=== PATIENT | male | born 1980 | race Caucasian/White ===

== ENCOUNTER 2016-08-17 20:44 | Emergency (ER) | payer OTHER ==
[2016-08-17] MEDS ORDERED: NORCO 5/325MG TABLET (BULK) As Ordered ONE (22:02)
--- NOTE | 2016-08-17 22:17 | EDDOCDS ---
Physician Documentation [facility] Name: Mathew Fermin Age: 35 yrs Sex: Male : 1980 Arrival Date: 08/17/2016 Time: 20:44 Bed TR7 Private MD: ALEHSAN EDEN Disposition: 08/17/16 22:02 Discharged to Home/Self Care. Impression: Pain in left shoulder. - Condition is Stable. - Discharge Instructions: Shoulder Dislocation, Shoulder Pain. - Prescriptions for Burtrum 5- 325 mg Oral Tablet - take 1 tablet by ORAL route every 6 hours As needed MDD: 4 tabs; 20 tablet. - Medication Reconciliation, Local Pharmacy Hours form. - Follow up: Fredi Jackson; When: Call to arrange an appointment; Reason: Recheck today's complaints, Continuance of care. - Problem is an acute exacerbation. - Symptoms have improved. Historical: - Allergies: PENICILLINS (Hives); - Home Meds: 1. none - PMHx: left shoulder dislocation; - PSHx: none; - Social history: Smoking status: Patient uses tobacco products, heavy tobacco smoker. Patient uses alcohol occasionally. Patient/guardian denies using street drugs, No barriers to communication noted, The patient speaks fluent Latvian, Speaks appropriately for age. - Family history: Not pertinent. - : The pt / caregiver states he / she is not on anticoagulants. Home medication list is obtained from the patient. - Exposure Risk Screening:: None identified. Vital Signs: 08/17 20:46 BP 158 / 101; Pulse 83; Resp 18 S; Temp 98.0; Pulse Ox 99% on R/A; Weight 90.26 kg / dd6 198.99 lbs (R); Height 6 ft. 0 in. (182.88 cm) (R); 22:07 BP 134 / 110; Pulse 61; Resp 18; Pulse Ox 96% ; Pain 3/10; ms18 22:12 ms18 20:46 Body Mass Index 26.99 (90.26 kg, 182.88 cm) dd6 22:12 Provider informed of pt's BP. Pt encouraged to follow up with PCP to monitor pt's BP ms18 MDM: 20:58 Shoulder, Complete Ordered. EDMS 21:57 HYDROcodone-acetaminophen 4 pack- 5 mg-325 mg 1 packets PO Per package directions; mo1 Dispense with patient. 1 po q4h prn for pain ordered. Administered Medications: 22:12 Drug: HYDROcodone-acetaminophen 4 pack- 1 packets [hydrocodone 5 mg-acetaminophen 325 jmb mg tablet (1 tabs)] {Co-Signature: ms18 (Swathi Joaquin RN).} Route: PO; 22:14 Follow up: Response: Med's dispensed home ms18 Signatures: Dispatcher [employer] Carol Garcia RN RN ttb Mathew Bonilla PA PA mo1 Swathi Joaquin RN RN ms18 Khadar Haile RN jmb Swathi Joaquin RN ms18 MTDD
--- NOTE | 2016-08-17 22:17 | EDDOCDS ---
Nurse's Notes [facility] Name: Mathew Fermin Age: 35 yrs Sex: Male : 1980 Arrival Date: 08/17/2016 Time: 20:44 Bed TR7 Private MD: MDEHSAN EDEN Diagnosis: Pain in left shoulder Presentation: 08/17 20:47 Presenting complaint: Patient states: left shoulder "popped his shoulder out" while ttb playing with balloon. Pt was seen here this past summer and is awaiting surgical repair in December. 12/11 pain. Adult Sepsis Screening: The patient does not have new or worsening altered mentation. Patient's respiratory rate is less than 22. Systolic blood pressure is greater than 100. Patient has a qSOFA score of 0- Negative Sepsis Screen. Suicide/Homicide risk assessment- the patient denies having any suicidal and/or homicidal ideations and does not present with any other emotional, behavioral or mental health complaints. Transition of care: patient was not received from another setting of care. 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 ttb Triage Assessment: 20:50 General: Appears in no apparent distress, well nourished, well groomed, Behavior is ttb appropriate for age, cooperative, pleasant. Pain: Location: left shoulder Pain currently is 5 out of 10 on a pain scale. HIV screening NA for this visit Offered previously. Neurological: Level of Consciousness is awake, alert, Reports numbness/tingling in left arm/hand. Cardiovascular: Chest pain is denied. Respiratory: No deficits noted. Airway is patent Denies cough, shortness of breath. Derm: Skin is normal. Musculoskeletal: Range of motion limited in left arm -- shoulder Reports pain in left shoulder. Injury Description: hitting a balloon. Historical: - Allergies: PENICILLINS (Hives); - Home Meds: 1. none - PMHx: left shoulder dislocation; - PSHx: none; - Social history: Smoking status: Patient uses tobacco products, heavy tobacco smoker. Patient uses alcohol occasionally. Patient/guardian denies using street drugs, No barriers to communication noted, The patient speaks fluent Azeri, Speaks appropriately for age. - Family history: Not pertinent. - : The pt / caregiver states he / she is not on anticoagulants. Home medication list is obtained from the patient. - Exposure Risk Screening:: None identified. Screenin:12 Screening information is obtained from the patient. Fall risk: No risks identified. ms18 Assistance ADL's: requires no assistance with activities of daily living. Abuse/DV Screen: The patient / caregiver reports he/she is: not in a situation that causes fear, pain or injury. Nutritional screening: No deficits noted. Advance Directives: There is no living will. home support is adequate. Assessment: 22:12 General: Appears in no apparent distress, comfortable, Behavior is appropriate for age, ms18 cooperative. Pain: Location: anterior aspect of left shoulder and posterior aspect of left shoulder Pain currently is 3 out of 10 on a pain scale. Neurological: Level of Consciousness is awake, alert, obeys commands, Oriented to person, place, time. Respiratory: No deficits noted. Derm: Skin is pink, warm & dry. Musculoskeletal: Circulation, motion, and sensation intact Range of motion intact in all extremities. No deformity noted Reports pain in anterior aspect of left shoulder and posterior aspect of left shoulder. Vital Signs: 20:46 BP 158 / 101; Pulse 83; Resp 18 S; Temp 98.0; Pulse Ox 99% on R/A; Weight 90.26 kg (R); dd6 Height 6 ft. 0 in. (182.88 cm) (R); 22:07 BP 134 / 110; Pulse 61; Resp 18; Pulse Ox 96% ; Pain 3/10; ms18 22:12 ms18 20:46 Body Mass Index 26.99 (90.26 kg, 182.88 cm) dd6 22:12 Provider informed of pt's BP. Pt encouraged to follow up with PCP to monitor pt's BP ms18 Vitals: 20:46 Log In Time: August 17, 2016 at 20:44. dd6 ED Course: 20:45 Patient visited by Nico Sevilla PCA. dd6 20:45 [facility], EHSAN MALDONADO is Private Physician. dd6 20:45 Patient moved to Waiting dd6 20:46 Patient moved to Pre RCE dd6 20:49 Triage Initiated ttb 20:52 Patient visited by Carol Howard RN. ttb 21:29 Patient moved to Triage 3 jmb 21:41 Mathew Bonilla PA is PHCP. mo1 21:41 Tim Hoang DO is Attending Physician. mo1 21:45 Patient moved to U2 dd6 21:46 Patient moved to Triage 3 dd6 21:55 Patient visited by Mathew Bonilla PA. mo1 22:02 Fredi Jackson is Referral Physician. mo1 22:11 Patient moved to [address] 22:12 Patient visited by Swathi Joaquin RN. ms18 22:12 The patient / caregiver is instructed regarding the plan of care and ED course. ms18 Accompanied by Family Member, Patient has correct armband on for positive identification. Property sent home with patient. :Personal belongings accompany Pt. 22:12 No IV's were initiated during this patient's visit. No procedures done that require ms18 assistance. Administered Medications: 22:12 Drug: HYDROcodone-acetaminophen 4 pack- 1 packets [hydrocodone 5 mg-acetaminophen 325 jmb mg tablet (1 tabs)] {Co-Signature: ms18 (Swathi Joaquin RN).} Route: PO; 22:14 Follow up: Response: Med's dispensed home ms18 Order Results: There are currently no results for this order. Outcome: 22:02 Discharge ordered by Provider. mo1 22:12 Discharge Assessment: Patient awake, alert and oriented x 3. No cognitive and/or ms18 functional deficits noted. Patient verbalized understanding of disposition instructions. patient administered narcotics - no. The following High Risk Discharge criteria are identified: None. Discharged to home ambulatory. Condition: good Condition: stable Condition: improved. Discharge instructions given to patient, Instructed on discharge instructions, follow up and referral plans. medication usage, no driving heavy equipment, Demonstrated understanding of instructions, medications, Pt understood to follow up with his PCP about his BP. Pt also stated that he has a sling at home that he will put on when he gets home. Prescriptions given X 1. No special radiology studies were completed. 22:16 Patient left the ED. ms18 Signatures: Nico Sevilla, GROUT PUMP OPERATOR GROUT PUMP OPERATOR dd6 Carol Howard, RN RN ttb Mathew Bonilla PA PA mo1 Khadar HaileRN RN jmb Swathi Joaquin RN RN ms18 Swathi Joaquin RN ms18 Corrections: (The following items were deleted from the chart) 20:49 20:47 Status: Patient is not a coordinator of genetic services or dependent. ttb ttb MTDD
--- NOTE | 2016-08-18 08:14 | REP ---
Clinical: Trauma . Technique: Internal rotation, external rotation, and Y view left shoulder . Findings: No acute fracture or dislocation. The acromioclavicular and glenohumeral joints are intact. No periarticular calcifications or degenerative changes are appreciated. Sub acromial space is normal. Surrounding soft tissues are unremarkable. Impression: Normal left shoulder radiographs. No acute fracture or dislocation. Signed by Vega Bone MD 08/18/2016 08:05 A
--- NOTE | 2016-08-19 23:17 | EDDOCDS ---
Nurse's Notes [facility] Name: Mathew Fermin Age: 35 yrs Sex: Male : 1980 Arrival Date: 08/17/2016 Time: 20:44 Bed TR7 Private MD: COEHSAN EDEN Diagnosis: Pain in left shoulder Presentation: 08/17 20:47 Presenting complaint: Patient states: left shoulder "popped his shoulder out" while ttb playing with balloon. Pt was seen here this past summer and is awaiting surgical repair in December. 12/11 pain. Adult Sepsis Screening: The patient does not have new or worsening altered mentation. Patient's respiratory rate is less than 22. Systolic blood pressure is greater than 100. Patient has a qSOFA score of 0- Negative Sepsis Screen. Suicide/Homicide risk assessment- the patient denies having any suicidal and/or homicidal ideations and does not present with any other emotional, behavioral or mental health complaints. Transition of care: patient was not received from another setting of care. 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 ttb Triage Assessment: 20:50 General: Appears in no apparent distress, well nourished, well groomed, Behavior is ttb appropriate for age, cooperative, pleasant. Pain: Location: left shoulder Pain currently is 5 out of 10 on a pain scale. HIV screening NA for this visit Offered previously. Neurological: Level of Consciousness is awake, alert, Reports numbness/tingling in left arm/hand. Cardiovascular: Chest pain is denied. Respiratory: No deficits noted. Airway is patent Denies cough, shortness of breath. Derm: Skin is normal. Musculoskeletal: Range of motion limited in left arm -- shoulder Reports pain in left shoulder. Injury Description: hitting a balloon. Historical: - Allergies: PENICILLINS (Hives); - Home Meds: 1. none - PMHx: left shoulder dislocation; - PSHx: none; - Social history: Smoking status: Patient uses tobacco products, heavy tobacco smoker. Patient uses alcohol occasionally. Patient/guardian denies using street drugs, No barriers to communication noted, The patient speaks fluent Malay, Speaks appropriately for age. - Family history: Not pertinent. - : The pt / caregiver states he / she is not on anticoagulants. Home medication list is obtained from the patient. - Exposure Risk Screening:: None identified. Screenin:12 Screening information is obtained from the patient. Fall risk: No risks identified. ms18 Assistance ADL's: requires no assistance with activities of daily living. Abuse/DV Screen: The patient / caregiver reports he/she is: not in a situation that causes fear, pain or injury. Nutritional screening: No deficits noted. Advance Directives: There is no living will. home support is adequate. Assessment: 22:12 General: Appears in no apparent distress, comfortable, Behavior is appropriate for age, ms18 cooperative. Pain: Location: anterior aspect of left shoulder and posterior aspect of left shoulder Pain currently is 3 out of 10 on a pain scale. Neurological: Level of Consciousness is awake, alert, obeys commands, Oriented to person, place, time. Respiratory: No deficits noted. Derm: Skin is pink, warm & dry. Musculoskeletal: Circulation, motion, and sensation intact Range of motion intact in all extremities. No deformity noted Reports pain in anterior aspect of left shoulder and posterior aspect of left shoulder. Vital Signs: 20:46 BP 158 / 101; Pulse 83; Resp 18 S; Temp 98.0; Pulse Ox 99% on R/A; Weight 90.26 kg (R); dd6 Height 6 ft. 0 in. (182.88 cm) (R); 22:07 BP 134 / 110; Pulse 61; Resp 18; Pulse Ox 96% ; Pain 3/10; ms18 22:12 ms18 20:46 Body Mass Index 26.99 (90.26 kg, 182.88 cm) dd6 22:12 Provider informed of pt's BP. Pt encouraged to follow up with PCP to monitor pt's BP ms18 Vitals: 20:46 Log In Time: August 17, 2016 at 20:44. dd6 ED Course: 20:45 Patient visited by Nico Sevilla PCA. dd6 20:45 [facility], EHSAN MALDONADO is Private Physician. dd6 20:45 Patient moved to Waiting dd6 20:46 Patient moved to Pre RCE dd6 20:49 Triage Initiated ttb 20:52 Patient visited by Carol Howard RN. ttb 21:29 Patient moved to Triage 3 jmb 21:41 Mathew Bonilla PA is PHCP. mo1 21:41 Tim Hoang DO is Attending Physician. mo1 21:45 Patient moved to U2 dd6 21:46 Patient moved to Triage 3 dd6 21:55 Patient visited by Mathew Bonilla PA. mo1 22:02 Fredi Jackson is Referral Physician. mo1 22:11 Patient moved to TR7 jmb 22:12 Patient visited by Swathi Joaquin,PHIL. ms18 22:12 The patient / caregiver is instructed regarding the plan of care and ED course. ms18 Accompanied by Family Member, Patient has correct armband on for positive identification. Property sent home with patient. :Personal belongings accompany Pt. 22:12 No IV's were initiated during this patient's visit. No procedures done that require ms18 assistance. 08/18 08:11 T-Sheet-- Draft Copy was scanned into [employer] and attached to record. [facility] 08:32 Shoulder, Complete Returned. EDMS Administered Medications: 08/17 22:12 Drug: HYDROcodone-acetaminophen 4 pack- 1 packets [hydrocodone 5 mg-acetaminophen 325 jmb mg tablet (1 tabs)] {Co-Signature: ms18 (Swathi Joaquin RN).} Route: PO; 22:14 Follow up: Response: Med's dispensed home ms18 Order Results: Radiology Order: Shoulder, Complete Test: Shoulder, Complete REASON FOR EXAMINATION: Trauma; Clinical: Trauma .; ; Technique: Internal rotation, external rotation, and Y view left shoulder .; ; Findings:; No acute fracture or dislocation. The acromioclavicular and glenohumeral joints; are intact. No periarticular calcifications or degenerative changes are; appreciated. Sub acromial space is normal. Surrounding soft tissues are; unremarkable.; ; Impression:; Normal left shoulder radiographs. No acute fracture or dislocation.; ; ; Signed by; Vega Bone MD 08/18/2016 08:05 A; Outcome: 22:02 Discharge ordered by Provider. mo1 22:12 Discharge Assessment: Patient awake, alert and oriented x 3. No cognitive and/or ms18 functional deficits noted. Patient verbalized understanding of disposition instructions. patient administered narcotics - no. The following High Risk Discharge criteria are identified: None. Discharged to home ambulatory. Condition: good Condition: stable Condition: improved. Discharge instructions given to patient, Instructed on discharge instructions, follow up and referral plans. medication usage, no driving heavy equipment, Demonstrated understanding of instructions, medications, Pt understood to follow up with his PCP about his BP. Pt also stated that he has a sling at home that he will put on when he gets home. Prescriptions given X 1. No special radiology studies were completed. 22:16 Patient left the ED. 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 ttb ttb Chart Complete MTDD
--- NOTE | 2016-08-19 23:17 | EDDOCDS ---
Physician Documentation [facility] Name: Mathew Fermin Age: 35 yrs Sex: Male : 1980 Arrival Date: 08/17/2016 Time: 20:44 Bed TR7 Private MD: MNEHSAN EDEN Disposition: 08/17/16 22:02 Discharged to Home/Self Care. Impression: Pain in left shoulder. - Condition is Stable. - Discharge Instructions: Shoulder Dislocation, Shoulder Pain. - Prescriptions for Morland 5- 325 mg Oral Tablet - take 1 tablet by ORAL route every 6 hours As needed MDD: 4 tabs; 20 tablet. - Medication Reconciliation, Local Pharmacy Hours form. - Follow up: Fredi Jackson; When: Call to arrange an appointment; Reason: Recheck today's complaints, Continuance of care. - Problem is an acute exacerbation. - Symptoms have improved. Historical: - Allergies: PENICILLINS (Hives); - Home Meds: 1. none - PMHx: left shoulder dislocation; - PSHx: none; - Social history: Smoking status: Patient uses tobacco products, heavy tobacco smoker. Patient uses alcohol occasionally. Patient/guardian denies using street drugs, No barriers to communication noted, The patient speaks fluent Serbian, Speaks appropriately for age. - Family history: Not pertinent. - : The pt / caregiver states he / she is not on anticoagulants. Home medication list is obtained from the patient. - Exposure Risk Screening:: None identified. Vital Signs: 08/17 20:46 BP 158 / 101; Pulse 83; Resp 18 S; Temp 98.0; Pulse Ox 99% on R/A; Weight 90.26 kg / dd6 198.99 lbs (R); Height 6 ft. 0 in. (182.88 cm) (R); 22:07 BP 134 / 110; Pulse 61; Resp 18; Pulse Ox 96% ; Pain 3/10; ms18 22:12 ms18 20:46 Body Mass Index 26.99 (90.26 kg, 182.88 cm) dd6 22:12 Provider informed of pt's BP. Pt encouraged to follow up with PCP to monitor pt's BP ms18 MDM: 20:58 Shoulder, Complete Ordered. EDMS 21:57 HYDROcodone-acetaminophen 4 pack- 5 mg-325 mg 1 packets PO Per package directions; mo1 Dispense with patient. 1 po q4h prn for pain ordered. 08/18 08:11 T-Sheet-- Draft Copy was scanned into [email or web address] and attached to record. [facility] Administered Medications: 08/17 22:12 Drug: HYDROcodone-acetaminophen 4 pack- 1 packets [hydrocodone 5 mg-acetaminophen 325 jmb mg tablet (1 tabs)] {Co-Signature: ms18 (Swathi Joaquin RN).} Route: PO; 22:14 Follow up: Response: Med's dispensed home ms18 Signatures: Dispatcher [employer] Carol Garcia RN RN ttb Mathew Bonilla PA PA mo1 Swathi Joaquin RN RN ms18 Marybeth German Joshua RN jmb Swathi Joaquin RN ms18 The chart was reviewed and I authenticate all verbal orders and agree with the evaluation and treatment provided.Attachments: 08/18 08:11 T-Sheet-- Draft Copy [facility] Chart Complete MTDD
--- NOTE | 2016-08-19 23:17 | EDDOCDS ---
Physician Documentation [facility] Name: Mathew Fermin Age: 35 yrs Sex: Male : 1980 Arrival Date: 08/17/2016 Time: 20:44 Bed TR7 Private MD: KSEHSAN EDEN Disposition: 08/17/16 22:02 Discharged to Home/Self Care. Impression: Pain in left shoulder. - Condition is Stable. - Discharge Instructions: Shoulder Dislocation, Shoulder Pain. - Prescriptions for Malone 5- 325 mg Oral Tablet - take 1 tablet by ORAL route every 6 hours As needed MDD: 4 tabs; 20 tablet. - Medication Reconciliation, Local Pharmacy Hours form. - Follow up: Fredi Jackson; When: Call to arrange an appointment; Reason: Recheck today's complaints, Continuance of care. - Problem is an acute exacerbation. - Symptoms have improved. Historical: - Allergies: PENICILLINS (Hives); - Home Meds: 1. none - PMHx: left shoulder dislocation; - PSHx: none; - Social history: Smoking status: Patient uses tobacco products, heavy tobacco smoker. Patient uses alcohol occasionally. Patient/guardian denies using street drugs, No barriers to communication noted, The patient speaks fluent Occitan, Speaks appropriately for age. - Family history: Not pertinent. - : The pt / caregiver states he / she is not on anticoagulants. Home medication list is obtained from the patient. - Exposure Risk Screening:: None identified. Vital Signs: 08/17 20:46 BP 158 / 101; Pulse 83; Resp 18 S; Temp 98.0; Pulse Ox 99% on R/A; Weight 90.26 kg / dd6 198.99 lbs (R); Height 6 ft. 0 in. (182.88 cm) (R); 22:07 BP 134 / 110; Pulse 61; Resp 18; Pulse Ox 96% ; Pain 3/10; ms18 22:12 ms18 20:46 Body Mass Index 26.99 (90.26 kg, 182.88 cm) dd6 22:12 Provider informed of pt's BP. Pt encouraged to follow up with PCP to monitor pt's BP ms18 MDM: 20:58 Shoulder, Complete Ordered. EDMS 21:57 HYDROcodone-acetaminophen 4 pack- 5 mg-325 mg 1 packets PO Per package directions; mo1 Dispense with patient. 1 po q4h prn for pain ordered. 08/18 08:11 T-Sheet-- Draft Copy was scanned into [employer] and attached to record. [facility] Administered Medications: 08/17 22:12 Drug: HYDROcodone-acetaminophen 4 pack- 1 packets [hydrocodone 5 mg-acetaminophen 325 jmb mg tablet (1 tabs)] {Co-Signature: ms18 (Swathi Joaquin RN).} Route: PO; 22:14 Follow up: Response: Med's dispensed home ms18 Signatures: Dispatcher [employer] Carol Garcia RN RN ttb Mathew Bonilla PA PA mo1 Swathi Joaquin RN RN ms18 Marybeth German Joshua RN jmb Swathi Joaquin RN ms18 The chart was reviewed and I authenticate all verbal orders and agree with the evaluation and treatment provided.Attachments: 08/18 08:11 T-Sheet-- Draft Copy [facility] Chart Complete MTDD
== END 2016-08-17 22:16 | disposition home or self-care (01) ==
LOC: M ED 20:44
DX: M25.512 Pain in left shoulder (principal); F17.200 Nicotine dependence, unspecified, uncomplicated; Z88.0 Allergy status to penicillin

== ENCOUNTER 2016-09-10 17:08 | Emergency (ER) | payer OTHER ==
[2016-09-10] MEDS ORDERED: HYDROmorphone HCL 1 MG/ML SYRINGE (J1170) As Ordered ONE (17:40)
[2016-09-10] MEDS ORDERED: PROPOFOL 200 MG/20 ML VIAL As Ordered ONE (18:04)
--- NOTE | 2016-09-10 18:16 | REP ---
Left shoulder two views: Comparison is 08/17/2016. There is inferior dislocation of the humeral head. Signed by Dylan Morrow MD 09/10/2016 06:08 P
--- NOTE | 2016-09-10 18:46 | REP ---
Portable left shoulder single AP view post reduction: The humeral head is now in satisfactory position and alignment with the glenoid on this single AP view. No gross evidence of fracture is identified on this single view. Signed by Dylan Morrow MD 09/10/2016 06:37 P
[2016-09-10] MEDS ORDERED: traMADol 50 MG TAB As Ordered ONE (18:48)
--- NOTE | 2016-09-10 18:56 | EDDOCDS ---
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 Adult Sepsis Screening: The patient does not have new or worsening altered mentation. Patient's respiratory rate is less than 22. Systolic blood pressure is greater than 100. Patient has a qSOFA score of 0- Negative Sepsis Screen. Suicide/Homicide risk assessment- the patient denies having any suicidal and/or homicidal ideations and does not present with any other emotional, behavioral or mental health complaints. 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 Transition of care: patient was not received from another setting of care. 17:11 Acuity: ASTRID Level 3 mk4 17:11 Method Of Arrival: Walkin/Carried/Asstd mk4 Triage Assessment: 17:13 General: Appears uncomfortable. Pain: Location: shoulder left. HIV screening NA for mk4 this visit Offered previously. Historical: - Allergies: PENICILLINS (Hives); - Home Meds: 1. none - PMHx: Left Shoulder Dislocation; - PSHx: none; - Social history: Smoking status: Patient uses tobacco products, light tobacco smoker. No barriers to communication noted, The patient speaks fluent Khmer. - Family history: Not pertinent. - : The pt / caregiver states he / she is not on anticoagulants. Home medication list is obtained from the patient. - Exposure Risk Screening:: None identified. Screenin:32 Screening information is obtained from the patient. Fall risk: No risks identified. mcp Assistance ADL's: requires no assistance with activities of daily living. Abuse/DV Screen: The patient / caregiver reports he/she is: not in a situation that causes fear, pain or injury. Nutritional screening: No deficits noted. Advance Directives: There is no active DNR order. home support is adequate. Assessment: 17:33 General: Appears uncomfortable, Behavior is cooperative. Pain: Location: left shoulder. mcp Neurological: No deficits noted. Respiratory: Airway is patent Respiratory effort is even, unlabored. Derm: Skin is pink, warm & dry. Musculoskeletal: Circulation, motion, and sensation intact Range of motion limited in left shoulder Bony deformity noted of left shoulder. 18:27 General: Appears in no apparent distress, comfortable, Behavior is appropriate for age, dsf cooperative. Pain: Location: left shoulder Pain currently is 8 out of 10 on a pain scale. Quality of pain is described as aching, sharp, throbbing. Neurological: Level of Consciousness is awake, alert, Oriented to person, place, time. Cardiovascular: Capillary refill < 3 seconds Rhythm is sinus rhythm No ectopy. Respiratory: Airway is patent Respiratory effort is even, unlabored, Respiratory pattern is regular, symmetrical. Derm: Skin is pink, warm & dry. 18:55 Adult Sepsis Screening: The patient does not have new or worsening altered mentation. dsf Patient's respiratory rate is less than 22. Systolic blood pressure is greater than 100. Patient has a qSOFA score of 0- Negative Sepsis Screen. General: Appears in no apparent distress, Behavior is appropriate for age, cooperative. Neurological: Level of Consciousness is awake, alert. Cardiovascular: Capillary refill < 3 seconds. Respiratory: Airway is patent Respiratory effort is even, unlabored, Respiratory pattern is regular, symmetrical. Derm: Skin is pink, warm & dry. Vital Signs: 17:09 Pulse 22; Weight 90.26 kg (R); Height 71 in. (180.34 cm) (R); elp 17:16 BP 145 / 87; Pulse 84; Resp 20; mk4 18:19 BP 135 / 82 (auto/); dsf 18:20 Pulse 69 MON; Pulse Ox 97% ; dsf 18:22 BP 138 / 87 (auto/); dsf 18:23 Pulse 60 MON; Pulse Ox 96% ; dsf 18:25 BP 134 / 86 (auto/); dsf 18:25 Pulse 54 MON; Pulse Ox 96% ; dsf 18:26 Pulse 65 MON; Resp 16; Pulse Ox 96% on 4 lpm NC; Pain 8/10; dsf 17:09 Body Mass Index 27.75 (90.26 kg, 180.34 cm) elp Vitals: 17:09 Log In Time: September 10, 2016 at 17:08. elp 17:09 RN notified that patient meets Red Flag criteria. elp ED Course: 17:08 Patient visited by Evelyn Kellogg PCA. elp 17:09 ROBERTS CHAPEL, EHSAN MALDONADO is Private Physician. elp 17:09 Patient moved to Waiting elp 17:10 Patient visited by Evelyn Kellogg PCA. elp 17:12 Triage Initiated mk4 17:14 Patient moved to I6 / 28 [facility] 17:31 Patient moved to 8 [facility] 17:32 The patient / caregiver is instructed regarding the plan of care and ED course. Patient mcp has correct armband on for positive identification. Bed in low position. Call light in reach. Adult w/ patient. 17:33 Tim Hoang DO is Attending Physician. cs11 17:33 Patient visited by Tim Hoang DO. [facility] 17:34 Patient visited by Jenn Mcintosh RN. [facility] 17:46 Patient visited by Jenn Mcintosh RN. [facility] 17:46 Inserted saline lock: 20 gauge in right antecubital area The patient tolerated the mcp procedure well. 18:04 Patient moved to 1 dsf 18:18 Assist provider with reduction of right shoulder using manipulation, Set up for dsf procedure. Performed by Tim Hoang DO Immobilized with sling, Patient tolerated well. Sling applied to left arm. Patient with positive distal sensation and brisk distal capillary refill after application. 18:28 Patient visited by Afsaneh Stokes RN. dsf 18:37 Fredi Jackson is Referral Physician. cs11 18:37 Ty Starkey is Referral Physician. cs11 18:40 Ty Starkey is Referral Physician. cs11 18:40 Fredi Jackson is Referral Physician. cs11 18:54 Discontinued lock intact, bleeding controlled, pressure dressing applied, No dsf redness/swelling at site. Administered Medications: 17:46 Drug: Dilaudid - HYDROmorphone 1 mg [hydromorphone 1 mg/mL injection syringe (1 mL)] [facility] Route: IVP; Site: right antecubital; 18:10 Drug: NS 0.9% 1000 ml [sodium chloride 0.9 % intravenous solution] Route: IV; Rate: ttb bolus; Site: right antecubital; 18:54 Follow up: IV Status: Infusion discontinued; IV Intake: 500ml dsf 18:18 Drug: Propofol (PF) 100 mg [propofol (PF) 200 mg/20 mL (10 mg/mL) intravenous emulsion dsf (10 mL)] {Note: given by Dr. Hoang .} Route: IVP; Site: right antecubital; 18:54 Drug: traMADol 50mg- 4 pack 1 packets [tramadol 50 mg tablet (1 tabs)] {Co-Signature: january ttkaroline (Carol Howard RN).} Route: PO; Intake: 18:54 IV: 500.00ml; Total: 500.00ml. dsf Order Results: There are currently no results for this order. Outcome: 18:39 Discharge ordered by Provider. cs11 18:41 Discharge ordered by Provider. 11 18:54 Discharge Assessment: Patient awake, alert and oriented x 3. No cognitive and/or dsf functional deficits noted. Patient verbalized understanding of disposition instructions. patient administered narcotics - yes. Pt provided with safe discharge. The following High Risk Discharge criteria are identified: None. Discharged to home ambulatory, with significant other. Condition: stable. Discharge instructions given to patient, significant other, Instructed on discharge instructions, follow up and referral plans. medication usage, no driving heavy equipment, sling care Demonstrated understanding of instructions, medications, Pt was receptive of discharge instructions/ teaching. No special radiology studies were completed. Property sent home with patient. 18:56 Patient left the ED. dsf Signatures: Christi Chau RN RN kcs Peters, Mary, RN RN mcp Fuller, Desiree, RN RN dsf Schiff, Craig, DO DO cs11 Carol Howard RN RN ttb Evelyn Kellogg, DISTRIBUTOR ADVERTISING MATERIAL DISTRIBUTOR ADVERTISING MATERIAL sadiap Janki Gutierrez RN RN mk4 Carol ignacio MTDD
--- NOTE | 2016-09-10 18:56 | EDDOCDS ---
Physician Documentation [facility] Name: Mathew Fermin Age: 35 yrs Sex: Male : 1980 Arrival Date: 09/10/2016 Time: 17:08 Bed 1 [facility] Disposition: 09/10/16 18:41 Discharged to Home/Self Care. Impression: Other dislocation of left shoulder joint. - Condition is Stable. - Medication Reconciliation, Local Pharmacy Hours form. - Follow up: Ty Starkey; When: As soon as possible; Reason: Recheck today's complaints, Continuance of care. Follow up: Fredi Jackson; When: As soon as possible; Reason: Recheck today's complaints, Continuance of care. - Problem is an ongoing problem. - Symptoms are resolved. Historical: - Allergies: PENICILLINS (Hives); - Home Meds: 1. none - PMHx: Left Shoulder Dislocation; - PSHx: none; - Social history: Smoking status: Patient uses tobacco products, light tobacco smoker. No barriers to communication noted, The patient speaks fluent Burundian. - Family history: Not pertinent. - : The pt / caregiver states he / she is not on anticoagulants. Home medication list is obtained from the patient. - Exposure Risk Screening:: None identified. Vital Signs: 09/10 17:09 Pulse 22; Weight 90.26 kg / 198.99 lbs (R); Height 71 in. (180.34 cm) (R); elp 17:16 BP 145 / 87; Pulse 84; Resp 20; mk4 18:19 BP 135 / 82 (auto/); dsf 18:20 Pulse 69 MON; Pulse Ox 97% ; dsf 18:22 BP 138 / 87 (auto/); dsf 18:23 Pulse 60 MON; Pulse Ox 96% ; dsf 18:25 BP 134 / 86 (auto/); dsf 18:25 Pulse 54 MON; Pulse Ox 96% ; dsf 18:26 Pulse 65 MON; Resp 16; Pulse Ox 96% on 4 lpm NC; Pain 8/10; dsf 17:09 Body Mass Index 27.75 (90.26 kg, 180.34 cm) elp Procedures: 18:27 Joint Reduction: of the left shoulder, using external rotation and abduction with cs11 traction., Immobilized with sling, Patient tolerated well. Post reduction film - reveals normal alignment. 18:28 Moderate sedation: Pre-procedure assessment: the patient has been NPO an unknown amount cs11 of time prior to arrival, ASA physical classification: I - healthy, no underlying organic disease, Airway assessment: able to hyperextend neck, able to maintain airway, can open mouth without difficulty, Mallampati classification of tongue size: I - faucial pillars, soft palate, and uvula can be fully visualized, Monitoring during procedure: nurse at bedside at all times, quality assurance monitor, continuous pulse oximetry, Medications employed: Propofol _ mg? 100 mgs. Post-procedure assessment: the patient is not sedated, Complications: none. Total time spent by provider performing sedation 10 minutes. MDM: 17:16 Shoulder, Complete Ordered. EDMS 17:33 IV Saline Lock ordered. cs11 17:33 Dilaudid - HYDROmorphone 1 mg IVP once ordered. cs11 17:47 NS 0.9% 1000 ml IV at bolus once ordered. cs11 18:24 Shoulder (1 View) Ordered. EDMS 18:39 traMADol 50mg- 4 pack 1 packets PO once; Dispense with patient. Take per package cs11 instructions. ordered. 18:42 Propofol (PF) 100 mg IVP once ordered. cs11 Administered Medications: 17:46 Drug: Dilaudid - HYDROmorphone 1 mg [hydromorphone 1 mg/mL injection syringe (1 mL)] mcp Route: IVP; Site: right antecubital; 18:10 Drug: NS 0.9% 1000 ml [sodium chloride 0.9 % intravenous solution] Route: IV; Rate: ttb bolus; Site: right antecubital; 18:54 Follow up: IV Status: Infusion discontinued; IV Intake: 500ml dsf 18:18 Drug: Propofol (PF) 100 mg [propofol (PF) 200 mg/20 mL (10 mg/mL) intravenous emulsion dsf (10 mL)] {Note: given by Dr. Hoang .} Route: IVP; Site: right antecubital; 18:54 Drug: traMADol 50mg- 4 pack 1 packets [tramadol 50 mg tablet (1 tabs)] {Co-Signature: dsf ttb (Carol Howard RN).} Route: PO; Signatures: Dispatcher [employer] EDMS Afsaneh Stokes,RN RN dsf Tim Hoang, DO cs11 Janki Gutierrez RN RN mk4 Jenn Mcintosh RN, mcp, Teresa RN ttb Carol Howard RN ttb KATHERINED
--- NOTE | 2016-09-12 19:57 | EDDOCDS ---
Physician Documentation [facility] Name: Mathew Fermin Age: 35 yrs Sex: Male : 1980 Arrival Date: 09/10/2016 Time: 17:08 Bed 1 [facility] Disposition: 09/10/16 18:41 Discharged to Home/Self Care. Impression: Other dislocation of left shoulder joint. - Condition is Stable. - Medication Reconciliation, Local Pharmacy Hours form. - Follow up: Ty Starkey; When: As soon as possible; Reason: Recheck today's complaints, Continuance of care. Follow up: Fredi Jackson; When: As soon as possible; Reason: Recheck today's complaints, Continuance of care. - Problem is an ongoing problem. - Symptoms are resolved. Historical: - Allergies: PENICILLINS (Hives); - Home Meds: 1. none - PMHx: Left Shoulder Dislocation; - PSHx: none; - Social history: Smoking status: Patient uses tobacco products, light tobacco smoker. No barriers to communication noted, The patient speaks fluent Algerian. - Family history: Not pertinent. - : The pt / caregiver states he / she is not on anticoagulants. Home medication list is obtained from the patient. - Exposure Risk Screening:: None identified. Vital Signs: 09/10 17:09 Pulse 22; Weight 90.26 kg / 198.99 lbs (R); Height 71 in. (180.34 cm) (R); elp 17:16 BP 145 / 87; Pulse 84; Resp 20; mk4 18:19 BP 135 / 82 (auto/); dsf 18:20 Pulse 69 MON; Pulse Ox 97% ; dsf 18:22 BP 138 / 87 (auto/); dsf 18:23 Pulse 60 MON; Pulse Ox 96% ; dsf 18:25 BP 134 / 86 (auto/); dsf 18:25 Pulse 54 MON; Pulse Ox 96% ; dsf 18:26 Pulse 65 MON; Resp 16; Pulse Ox 96% on 4 lpm NC; Pain 8/10; dsf 18:36 BP 128 / 86 (auto/); dsf 18:37 Pulse 54 MON; Pulse Ox 97% ; dsf 18:41 BP 129 / 94 (auto/); dsf 18:41 Pulse 63 MON; Pulse Ox 97% ; dsf 18:42 BP 131 / 96 (auto/); dsf 18:42 Pulse 51 MON; Resp 20; Temp 95.8(T); Pulse Ox 97% on R/A; Pain 7/10; dsf 17:09 Body Mass Index 27.75 (90.26 kg, 180.34 cm) elp Procedures: 18:27 Joint Reduction: of the left shoulder, using external rotation and abduction with cs11 traction., Immobilized with sling, Patient tolerated well. Post reduction film - reveals normal alignment. 18:28 Moderate sedation: Pre-procedure assessment: the patient has been NPO an unknown amount cs11 of time prior to arrival, ASA physical classification: I - healthy, no underlying organic disease, Airway assessment: able to hyperextend neck, able to maintain airway, can open mouth without difficulty, Mallampati classification of tongue size: I - faucial pillars, soft palate, and uvula can be fully visualized, Monitoring during procedure: nurse at bedside at all times, side piece coverer, continuous pulse oximetry, Medications employed: Propofol _ mg? 100 mgs. Post-procedure assessment: the patient is not sedated, Complications: none. Total time spent by provider performing sedation 10 minutes. MDM: 17:16 Shoulder, Complete Ordered. EDMS 17:33 IV Saline Lock ordered. cs11 17:33 Dilaudid - HYDROmorphone 1 mg IVP once ordered. cs11 17:47 NS 0.9% 1000 ml IV at bolus once ordered. cs11 18:24 Shoulder (1 View) Ordered. EDMS 18:39 traMADol 50mg- 4 pack 1 packets PO once; Dispense with patient. Take per package cs11 instructions. ordered. 18:42 Propofol (PF) 100 mg IVP once ordered. cs11 09/11 14:16 T-Sheet-- Draft Copy was scanned into [employer] and attached to record. gb 14:16 [place] Protocol was scanned into [employer] and attached to record. gb 14:16 Consents was scanned into [employer] and attached to record. gb Administered Medications: 09/10 17:46 Drug: Dilaudid - HYDROmorphone 1 mg [hydromorphone 1 mg/mL injection syringe (1 mL)] mcp Route: IVP; Site: right antecubital; 18:10 Drug: NS 0.9% 1000 ml [sodium chloride 0.9 % intravenous solution] Route: IV; Rate: ttb bolus; Site: right antecubital; 18:54 Follow up: IV Status: Infusion discontinued; IV Intake: 500ml dsf 18:18 Drug: Propofol (PF) 100 mg [propofol (PF) 200 mg/20 mL (10 mg/mL) intravenous emulsion dsf (10 mL)] {Note: given by Dr. Hoang .} Route: IVP; Site: right antecubital; 18:54 Drug: traMADol 50mg- 4 pack 1 packets [tramadol 50 mg tablet (1 tabs)] {Co-Signature: dsf ttb (Carol Howard RN).} Route: PO; 18:56 Follow up: Response: Med's dispensed home dsf Signatures: Dispatcher [employer] EDМария Knight, Reg Reg gb Afsaneh Stokes,RN RN dsf Tim Hoang, DO cs11 Janki Gutierrez RN RN 4 Jenn Mcintosh RN, mcp, Teresa RN ttb Carol Howard RN ttb The chart was reviewed and I authenticate all verbal orders and agree with the evaluation and treatment provided.Attachments: 09/11 14:16 T-Sheet-- Draft Copy gb Chart Complete MTDD
--- NOTE | 2016-09-12 19:57 | EDDOCDS ---
Physician Documentation [facility] Name: Mathew Fermin Age: 35 yrs Sex: Male : 1980 Arrival Date: 09/10/2016 Time: 17:08 Bed 1 [facility] Disposition: 09/10/16 18:41 Discharged to Home/Self Care. Impression: Other dislocation of left shoulder joint. - Condition is Stable. - Medication Reconciliation, Local Pharmacy Hours form. - Follow up: Ty Starkey; When: As soon as possible; Reason: Recheck today's complaints, Continuance of care. Follow up: Fredi Jackson; When: As soon as possible; Reason: Recheck today's complaints, Continuance of care. - Problem is an ongoing problem. - Symptoms are resolved. Historical: - Allergies: PENICILLINS (Hives); - Home Meds: 1. none - PMHx: Left Shoulder Dislocation; - PSHx: none; - Social history: Smoking status: Patient uses tobacco products, light tobacco smoker. No barriers to communication noted, The patient speaks fluent Slovak. - Family history: Not pertinent. - : The pt / caregiver states he / she is not on anticoagulants. Home medication list is obtained from the patient. - Exposure Risk Screening:: None identified. Vital Signs: 09/10 17:09 Pulse 22; Weight 90.26 kg / 198.99 lbs (R); Height 71 in. (180.34 cm) (R); elp 17:16 BP 145 / 87; Pulse 84; Resp 20; mk4 18:19 BP 135 / 82 (auto/); dsf 18:20 Pulse 69 MON; Pulse Ox 97% ; dsf 18:22 BP 138 / 87 (auto/); dsf 18:23 Pulse 60 MON; Pulse Ox 96% ; dsf 18:25 BP 134 / 86 (auto/); dsf 18:25 Pulse 54 MON; Pulse Ox 96% ; dsf 18:26 Pulse 65 MON; Resp 16; Pulse Ox 96% on 4 lpm NC; Pain 8/10; dsf 18:36 BP 128 / 86 (auto/); dsf 18:37 Pulse 54 MON; Pulse Ox 97% ; dsf 18:41 BP 129 / 94 (auto/); dsf 18:41 Pulse 63 MON; Pulse Ox 97% ; dsf 18:42 BP 131 / 96 (auto/); dsf 18:42 Pulse 51 MON; Resp 20; Temp 95.8(T); Pulse Ox 97% on R/A; Pain 7/10; dsf 17:09 Body Mass Index 27.75 (90.26 kg, 180.34 cm) elp Procedures: 18:27 Joint Reduction: of the left shoulder, using external rotation and abduction with cs11 traction., Immobilized with sling, Patient tolerated well. Post reduction film - reveals normal alignment. 18:28 Moderate sedation: Pre-procedure assessment: the patient has been NPO an unknown amount cs11 of time prior to arrival, ASA physical classification: I - healthy, no underlying organic disease, Airway assessment: able to hyperextend neck, able to maintain airway, can open mouth without difficulty, Mallampati classification of tongue size: I - faucial pillars, soft palate, and uvula can be fully visualized, Monitoring during procedure: nurse at bedside at all times, steam table associate, continuous pulse oximetry, Medications employed: Propofol _ mg? 100 mgs. Post-procedure assessment: the patient is not sedated, Complications: none. Total time spent by provider performing sedation 10 minutes. MDM: 17:16 Shoulder, Complete Ordered. EDMS 17:33 IV Saline Lock ordered. cs11 17:33 Dilaudid - HYDROmorphone 1 mg IVP once ordered. cs11 17:47 NS 0.9% 1000 ml IV at bolus once ordered. cs11 18:24 Shoulder (1 View) Ordered. EDMS 18:39 traMADol 50mg- 4 pack 1 packets PO once; Dispense with patient. Take per package cs11 instructions. ordered. 18:42 Propofol (PF) 100 mg IVP once ordered. cs11 09/11 14:16 T-Sheet-- Draft Copy was scanned into [employer] and attached to record. gb 14:16 [place] Protocol was scanned into [employer] and attached to record. gb 14:16 Consents was scanned into [employer] and attached to record. gb Administered Medications: 09/10 17:46 Drug: Dilaudid - HYDROmorphone 1 mg [hydromorphone 1 mg/mL injection syringe (1 mL)] mcp Route: IVP; Site: right antecubital; 18:10 Drug: NS 0.9% 1000 ml [sodium chloride 0.9 % intravenous solution] Route: IV; Rate: ttb bolus; Site: right antecubital; 18:54 Follow up: IV Status: Infusion discontinued; IV Intake: 500ml dsf 18:18 Drug: Propofol (PF) 100 mg [propofol (PF) 200 mg/20 mL (10 mg/mL) intravenous emulsion dsf (10 mL)] {Note: given by Dr. Hoang .} Route: IVP; Site: right antecubital; 18:54 Drug: traMADol 50mg- 4 pack 1 packets [tramadol 50 mg tablet (1 tabs)] {Co-Signature: dsf ttb (Carol Howard RN).} Route: PO; 18:56 Follow up: Response: Med's dispensed home dsf Signatures: Dispatcher [employer] EDМария Knight, Reg Reg gb Afsaneh Stokes,RN RN dsf Tim Hoang, DO cs11 Janki Gutierrez RN RN 4 Jenn Mcintosh RN, mcp, Teresa RN ttb Carol Howard RN ttb The chart was reviewed and I authenticate all verbal orders and agree with the evaluation and treatment provided.Attachments: 09/11 14:16 T-Sheet-- Draft Copy gb Chart Complete MTDD
--- NOTE | 2016-09-12 19:57 | EDDOCDS ---
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 Adult Sepsis Screening: The patient does not have new or worsening altered mentation. Patient's respiratory rate is less than 22. Systolic blood pressure is greater than 100. Patient has a qSOFA score of 0- Negative Sepsis Screen. Suicide/Homicide risk assessment- the patient denies having any suicidal and/or homicidal ideations and does not present with any other emotional, behavioral or mental health complaints. 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 Transition of care: patient was not received from another setting of care. 17:11 Acuity: ASTRID Level 3 mk4 17:11 Method Of Arrival: Walkin/Carried/Asstd mk4 Triage Assessment: 17:13 General: Appears uncomfortable. Pain: Location: shoulder left. HIV screening NA for mk4 this visit Offered previously. Historical: - Allergies: PENICILLINS (Hives); - Home Meds: 1. none - PMHx: Left Shoulder Dislocation; - PSHx: none; - Social history: Smoking status: Patient uses tobacco products, light tobacco smoker. No barriers to communication noted, The patient speaks fluent [place]. - Family history: Not pertinent. - : The pt / caregiver states he / she is not on anticoagulants. Home medication list is obtained from the patient. - Exposure Risk Screening:: None identified. Screenin:32 Screening information is obtained from the patient. Fall risk: No risks identified. mcp Assistance ADL's: requires no assistance with activities of daily living. Abuse/DV Screen: The patient / caregiver reports he/she is: not in a situation that causes fear, pain or injury. Nutritional screening: No deficits noted. Advance Directives: There is no active DNR order. home support is adequate. Assessment: 17:33 General: Appears uncomfortable, Behavior is cooperative. Pain: Location: left shoulder. mcp Neurological: No deficits noted. Respiratory: Airway is patent Respiratory effort is even, unlabored. Derm: Skin is pink, warm & dry. Musculoskeletal: Circulation, motion, and sensation intact Range of motion limited in left shoulder Bony deformity noted of left shoulder. 18:27 General: Appears in no apparent distress, comfortable, Behavior is appropriate for age, dsf cooperative. Pain: Location: left shoulder Pain currently is 8 out of 10 on a pain scale. Quality of pain is described as aching, sharp, throbbing. Neurological: Level of Consciousness is awake, alert, Oriented to person, place, time. Cardiovascular: Capillary refill < 3 seconds Rhythm is sinus rhythm No ectopy. Respiratory: Airway is patent Respiratory effort is even, unlabored, Respiratory pattern is regular, symmetrical. Derm: Skin is pink, warm & dry. 18:55 Adult Sepsis Screening: The patient does not have new or worsening altered mentation. dsf Patient's respiratory rate is less than 22. Systolic blood pressure is greater than 100. Patient has a qSOFA score of 0- Negative Sepsis Screen. General: Appears in no apparent distress, Behavior is appropriate for age, cooperative. Neurological: Level of Consciousness is awake, alert. Cardiovascular: Capillary refill < 3 seconds. Respiratory: Airway is patent Respiratory effort is even, unlabored, Respiratory pattern is regular, symmetrical. Derm: Skin is pink, warm & dry. Vital Signs: 17:09 Pulse 22; Weight 90.26 kg (R); Height 71 in. (180.34 cm) (R); elp 17:16 BP 145 / 87; Pulse 84; Resp 20; mk4 18:19 BP 135 / 82 (auto/); dsf 18:20 Pulse 69 MON; Pulse Ox 97% ; dsf 18:22 BP 138 / 87 (auto/); dsf 18:23 Pulse 60 MON; Pulse Ox 96% ; dsf 18:25 BP 134 / 86 (auto/); dsf 18:25 Pulse 54 MON; Pulse Ox 96% ; dsf 18:26 Pulse 65 MON; Resp 16; Pulse Ox 96% on 4 lpm NC; Pain 8/10; dsf 18:36 BP 128 / 86 (auto/); dsf 18:37 Pulse 54 MON; Pulse Ox 97% ; dsf 18:41 BP 129 / 94 (auto/); dsf 18:41 Pulse 63 MON; Pulse Ox 97% ; dsf 18:42 BP 131 / 96 (auto/); dsf 18:42 Pulse 51 MON; Resp 20; Temp 95.8(T); Pulse Ox 97% on R/A; Pain 7/10; dsf 17:09 Body Mass Index 27.75 (90.26 kg, 180.34 cm) [facility] Vitals: 17:09 Log In Time: September 10, 2016 at 17:08. elp 17:09 RN notified that patient meets Red Flag criteria. elp ED Course: 17:08 Patient visited by Evelyn Kellogg PCA. elp 17:09 [facility]. elp 17:09 Patient moved to Waiting elp 17:10 Patient visited by Evelyn Kellogg PCA. elp 17:12 Triage Initiated mk4 17:14 Patient moved to I6 / 28 mcp 17:31 Patient moved to 8 kcs 17:32 The patient / caregiver is instructed regarding the plan of care and ED course. Patient mcp has correct armband on for positive identification. Bed in low position. Call light in reach. Adult w/ patient. 17:33 Tim Hoang DO is Attending Physician. cs11 17:33 Patient visited by Tim Hoang DO. cs11 17:34 Patient visited by Jenn Mcintosh, PHIL. [facility] 17:46 Patient visited by Jenn Mcintosh RN. [facility] 17:46 Inserted saline lock: 20 gauge in right antecubital area The patient tolerated the mcp procedure well. 18:04 Patient moved to 1 dsf 18:18 Assist provider with reduction of right shoulder using manipulation, Set up for dsf procedure. Performed by Tim Hoang DO Immobilized with sling, Patient tolerated well. Sling applied to left arm. Patient with positive distal sensation and brisk distal capillary refill after application. 18:28 Patient visited by Afsaneh Stokes RN. dsf 18:37 Fredi Jackson is Referral Physician. cs11 18:37 Ty Starkey is Referral Physician. cs11 18:40 Ty Starkey is Referral Physician. cs11 18:40 Fredi Jackson is Referral Physician. cs11 18:54 Discontinued lock intact, bleeding controlled, pressure dressing applied, No dsf redness/swelling at site. 19:09 Shoulder, Complete Returned. EDMS 19:09 Shoulder (1 View) Returned. EDMS 09/11 14:16 T-Sheet-- Draft Copy was scanned into [employer] and attached to record. gb 14:16 [place] Protocol was scanned into [employer] and attached to record. gb 14:16 Consents was scanned into [employer] and attached to record. gb Administered Medications: 09/10 17:46 Drug: Dilaudid - HYDROmorphone 1 mg [hydromorphone 1 mg/mL injection syringe (1 mL)] mcp Route: IVP; Site: right antecubital; 18:10 Drug: NS 0.9% 1000 ml [sodium chloride 0.9 % intravenous solution] Route: IV; Rate: ttb bolus; Site: right antecubital; 18:54 Follow up: IV Status: Infusion discontinued; IV Intake: 500ml dsf 18:18 Drug: Propofol (PF) 100 mg [propofol (PF) 200 mg/20 mL (10 mg/mL) intravenous emulsion dsf (10 mL)] {Note: given by Dr. Hoang .} Route: IVP; Site: right antecubital; 18:54 Drug: traMADol 50mg- 4 pack 1 packets [tramadol 50 mg tablet (1 tabs)] {Co-Signature: dsf ttb (Carol Howard RN).} Route: PO; 18:56 Follow up: Response: Med's dispensed home dsf Attachments: 14:16 [place] Protocol 14:16 Consents gb Intake: 09/10 18:54 IV: 500.00ml; Total: 500.00ml. dsf Order Results: Radiology Order: Shoulder, Complete Test: Shoulder, Complete REASON FOR EXAMINATION: Trauma; Left shoulder two views:; ; Comparison is 08/17/2016.; ; There is inferior dislocation of the humeral head.; ; ; Signed by; Dylan Morrow MD 09/10/2016 06:08 P; Radiology Order: Shoulder (1 View) Test: Shoulder (1 View) REASON FOR EXAMINATION: post-reduction; Portable left shoulder single AP view post reduction:; ; The humeral head is now in satisfactory position and alignment with the glenoid; on this single AP view. No gross evidence of fracture is identified on this; single view.; ; ; Signed by; Dylan Morrow MD 09/10/2016 06:37 P; Outcome: 18:39 Discharge ordered by Provider. 11 18:41 Discharge ordered by Provider. cs11 18:54 Discharge Assessment: Patient awake, alert and oriented x 3. No cognitive and/or dsf functional deficits noted. Patient verbalized understanding of disposition instructions. patient administered narcotics - yes. Pt provided with safe discharge. The following High Risk Discharge criteria are identified: None. Discharged to home ambulatory, with significant other. Condition: stable. Discharge instructions given to patient, significant other, Instructed on discharge instructions, follow up and referral plans. medication usage, no driving heavy equipment, sling care Demonstrated understanding of instructions, medications, Pt was receptive of discharge instructions/ teaching. No special radiology studies were completed. Property sent home with patient. 18:56 Patient left the ED. dsf Signatures: Dispatcher [employer] EDMS Christi Chau, RN Jenn Resendiz RN Мария Sutherland mcp, Afsaneh Bone RN RN dsf Tim Hoang, DO DO cs11 Carol Howard RN RN ttb Evelyn Kellogg, NIURKA SALES SUPERINTENDENT Janki Jones RN RN mk4 Carol Howard RN ttb Chart Complete ROSE MARIE
== END 2016-09-10 18:56 | disposition home or self-care (01) ==
LOC: M ED 17:08
DX: S43.305A Dislocation of unspecified parts of left shoulder girdle, initial encounter (principal); W01.0XXA Fall on same level from slipping, tripping and stumbling without subsequent striking against object, initial encounter; Y92.019 Unspecified place in single-family (private) house as the place of occurrence of the external cause; Y93.01 Activity, walking, marching and hiking; Y99.8 Other external cause status; F17.210 Nicotine dependence, cigarettes, uncomplicated; Z88.0 Allergy status to penicillin
CPT/HCPCS: 23650; 73020; 73030; 96361; 96374; 99152; 99285; J1170

== ENCOUNTER 2018-10-29 07:05 | Emergency (ER) | payer OTHER ==
[~2018-10-29] VITALS: Ht 180.3 cm; Wt 90.9 kg
--- NOTE | 2018-10-29 08:56 | REP ---
Femur: Four views. History: Injury. Findings: The lateral views of the right femur demonstrate an obliquely oriented radiolucency through the posterior cortex of the midshaft of the femur suggestive of a nondisplaced possibly incomplete femur fracture. Proximal to this is a normal appearing nutrient foramen. No other evidence of fracture. No displacement. Study is otherwise normal. Impression: Possible incomplete fracture obliquely oriented through the posterior cortex of the midshaft of the femur seen only on lateral radiographs. Electronically Signed by Tripp Ogden MD 10/29/2018 11:57 A
[2018-10-29] MEDS ORDERED: IBUP-1022 PO (09:37)
--- NOTE | 2018-10-29 09:45 | REP ---
CT right femur without contrast: History: Possible fracture. Findings: Helical scanning is performed. There is no evidence of femoral diaphyseal fracture. The radiolucency seen on the lateral radiograph is noted to be due to 1 of 2 nutrient canals through the posterior cortex of the mid shafts of the right femur. No fracture is seen. There is a bone island in the lateral femoral condyle. Adjacent soft tissues are unremarkable. Impression: Negative CT study of the right femur. No fracture seen. Normal nutrient canal simulated fracture on lateral radiograph. Electronically Signed by Tripp Ogden MD 10/29/2018 12:03 P
[2018-10-29 10:10] VITALS: BP 122/80
== END 2018-10-29 10:26 | disposition home or self-care (01) ==
LOC: M ED 07:05
DX: S76.311A Strain of muscle, fascia and tendon of the posterior muscle group at thigh level, right thigh, initial encounter (principal); X50.9XXA Other and unspecified overexertion or strenuous movements or postures, initial encounter; Y92.139 Unspecified place military base as the place of occurrence of the external cause; Y93.02 Activity, running; Y99.1 Military activity; I10 Essential (primary) hypertension; Z98.890 Other specified postprocedural states; Z88.0 Allergy status to penicillin; Z91.030 Bee allergy status

== ENCOUNTER → 2023-11-19 | Outpatient (CLI) | payer OTHER ==
[~2023-11-19] MED LIST: IBUP-1022 PO
== END ==
LOC: M PLAIMG 08:51
PROVIDERS: ATTEND Physical Medicine & Rehabilitation
DX: G44.319 Acute post-traumatic headache, not intractable (principal); Z87.820 Personal history of traumatic brain injury; R26.89 Other abnormalities of gait and mobility

== ENCOUNTER → 2024-05-10 | Outpatient (CLI) | payer OTHER | LOC: M SLEEP 20:00 | PROVIDERS: ATTEND Internal Medicine | DX: G47.33 Obstructive sleep apnea (adult) (pediatric) (principal) ==